=== PATIENT | male | born 1965 | race Caucasian/White ===

== ENCOUNTER 2025-05-05 08:04 | Emergency (ER) | payer BC ==
[~2025-05-05] VITALS: Ht 190.5 cm; Wt 131.8 kg
--- NOTE | 2025-05-05 08:12 | ELECTROCARDIOGRAPH REPORT ---
[facility] Test Date: 2025-05-05 Test Time: 08:09:33 Pat Name: MELISSA KIMBALL Department: EMERGENCY ROOM Room: Gender: M Director Toxicology: VIN : 1965 Requested By: SRINATH BISWAS Order Number: [id number] Reading MD: Dr. Toro Reyes Measurements Intervals [place] Rate: 85 P: 62 WA: 145 QRS: 52 QRSD: 88 T: 60 QT: 341 QTc: 406 Interpretive Statements Sinus rhythm Electronically Signed On 05-05-2025 18:47:[address] Toro Reyes Please click the below link to view image of tracing.
--- NOTE | 2025-05-05 08:51 | RADIOLOGY REPORT ---
CHEST RADIOGRAPH Indication: CP Technique: Single frontal view of the chest was obtained COMPARISON: None FINDINGS: Lines and Tubes: None Lungs: Clear Pleura: No effusion. No pneumothorax. Cardiomediastinal contours: Unremarkable Bones: Unremarkable IMPRESSION: 1. No acute disease.
[2025-05-05 10:09] LABS: BASOPHILS # (AUTO) 0.1 X10'3 (0-0.2); BASOPHILS % (AUTO) 0.7 % (0-1); EOSINOPHILS # (AUTO) 0.1 X10'3 (0-0.9); EOSINOPHILS % (AUTO) 1.4 % (0-6); HEMATOCRIT 47.7 % (42.0-52.0); HEMOGLOBIN 16.2 g/dl (14.0-17.9); LYMPHOCYTES # (AUTO) 1.1 X10'3 (1.1-4.8); LYMPHOCYTES % (AUTO) 13.9 % (21-51); MEAN CORPUSCULAR HEMOGLOBIN 29.1 PG (27.0-31.0); MEAN CORPUSCULAR VOLUME 85.5 FL (78-98); MEAN PLATELET VOLUME 7.5 FL (7.4-10.4); MONOCYTES # (AUTO) 0.5 X10'3 (0-0.9); NEUTROPHILS # (AUTO) 6.2 X10'3 (1.8-7.7); PLATELET COUNT 230 X10'3 (140-440); RED BLOOD COUNT 5.58 X10'6 (4.70-6.10); RED CELL DISTRIBUTION WIDTH 13.4 % (11.5-14.5)
[2025-05-05 10:34] LABS: ANION GAP 9 (8-16); BLOOD UREA NITROGEN 14 MG/DL (7-18); BUN/CREATININE RATIO 16.5 (10.0-20.0); CALCIUM 9.5 MG/DL (8.5-10.1); CHLORIDE 102 MMOL/L (99-107); CREATININE 0.85 MG/DL (0.60-1.10); GLUCOSE 112 MG/DL (70-104); POTASSIUM 4.2 MMOL/L (3.5-5.1); PRO BRAIN NATRIURETIC PEPTIDE 95 PG/ML (0-125); SODIUM 138 MMOL/L (135-145); TOTAL CARBON DIOXIDE 27.5 MMOL/L (24-32); eCRCL 109 ML/MIN; eGFR > 90 ML/MIN
--- NOTE | 2025-05-05 10:44 | Physician Documentation ---
History of Present Illness ~ Chief Complaint: Chest Pain Stated Complaint: CP/SOB/BLURRY VISION Time Seen by MD: 09:00 Mode of Arrival: Ambulatory, Dropped Off HPI Patient reports he had a colonoscopy 3 months ago and was sent to Dr. kaiser because of irregularities in his ekg. Dr. kaiser saw him and did a work up which was negative but put him on a small dose of metoprolol. Pt takes that regularly but this morning states he woke up with chest pain and felt somewhat dizzy and weak. Currently he is asymptomatic and denies fever, N/V/D, cough, chest pain, abdominal pain, urinary symptoms. He also recently started ozempic injections. Medication Reconciliation Allergies: Coded Allergies: No Known Allergies (Unverified , 05/05/25) Review of Systems All Other Systems at this time: Reviewed and Negative Physical Exam Vital Signs: RN Vital Signs have been reviewed: Yes, Temperature: 96.6, Source: Temporal, Heart Rate: 77, Respiratory Rate: 12, BP: 147/63, Pulse Oximetry: 96, Weight: 131.820 Oxygen Flow Rate: 0 Physical Exam HEENT: PERRL, moist oral mucosa, EOMI Pulmonary: No respiratory distress Cardiac: RRR, no murmur, rub or gallop GI: nondistended, soft, nontender, no guarding, no rebound MSK: no deformity Skin: w/d/i, no rash Neuro: alert, nonfocal Psych: normal affect Progress Results/Orders Results/Orders Orders - SRINATH BISWAS MD Chest,Single View (05/05/25 08:11) Monitor (05/05/25 08:11) Saline Lock (05/05/25 08:11) Oxygen (05/05/25 08:11) Hs Troponin I W Calculations (05/05/25 10:11) Hs Troponin I W Calculations (05/05/25 11:11) Completed Orders - SRINATH BISWAS MD Chest,Single View (05/05/25 08:11) Cbc/Diff (05/05/25 08:11) BMP (05/05/25 08:11) PBNP (05/05/25 08:11) Electrocardiogram (05/05/25 08:11) Hs Troponin I W Calculations (05/05/25 08:11) Vital Signs 6/05/05/25 05/05/25 08:20 10:07 10:13 Temp 96.6 Pulse 80 77 Resp 16 12 B/P (MAP) 135/85 147/63 (91) Pulse Ox 98 96 O2 Flow Rate 0 0 Laboratory Tests Test 05/05/25 09:31 05/05/25 10:25 White Blood Count 8.0 Red Blood Count 5.58 Hemoglobin 16.2 Hematocrit 47.7 Mean Corpuscular Volume 85.5 Mean Corpuscular Hemoglobin 29.1 Mean Corpuscular Hemoglobin Concent 34.0 Red Cell Distribution Width 13.4 Platelet Count 230 Mean Platelet Volume 7.5 Neutrophils (%) (Auto) 78.0 H Lymphocytes (%) (Auto) 13.9 L Monocytes (%) (Auto) 6.0 Eosinophils (%) (Auto) 1.4 Basophils (%) (Auto) 0.7 Neutrophils # (Auto) 6.2 Lymphocytes # (Auto) 1.1 Monocytes # (Auto) 0.5 Eosinophils # (Auto) 0.1 Basophils # (Auto) 0.1 CBC Comment Sodium Level 138 Potassium Level 4.2 Chloride Level 102 Carbon Dioxide Level 27.5 Anion Gap 9 Blood Urea Nitrogen 14 Creatinine 0.85 Estimated GFR/1.73 m2 > 90 BUN/Creatinine Ratio 16.5 Glucose Level 112 H Calcium Level 9.5 Troponin I High Sensitivity 6 Pro-B-Type Natriuretic Peptide 95 Albumin 4.0 Chemistry Comments Medical Decision Making Findings 60 year old male with chest pain and weakness, recently started several medications including metoprolol and ozempic. Exam and vitals were benign. CXR by my interpretation demonstrates normal contours, no cardiomegaly, no infiltrate, no acute findings. EKG by my interpretation demonstrates NSR at rate of 85/minute, no STEMI criteria, no dysrhythmia. Observed, workup including troponin, electrolytes, hemoglobin unremarkable. 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 I feel that this patient's symptoms are likely secondary to his new medications. Return precautions were discussed. Differential Dx:Considerations: Include: gastritis, myocardial infarction, pericarditis, pancreatitis, pneumonia, pneumothorax Additional Information ddx includes anemia, dysrhythmia, UTI Departure Disposition: HOME / SELF CARE / HOMELESS Impression: Primary Impression: Chest pain Discharge Instructions: Nonspecific Chest Pain, Adult Referrals: NO PRIMARY CARE PROVIDER (PCP) Education Educated: Patient, Family Educated regarding: diagnosis, treatment, prognosis, need for follow up Signature Scribe Signature: . Attestation: . SRINATH BISWAS MD May 05, 2025 10:44
[2025-05-05 10:51] VITALS: BP 138/58; PULSE 80; RESP 16; TEMP 98; O2SAT 95
== END 2025-05-05 10:53 | disposition home or self-care (01) ==
LOC: ER 08:05
DX: R07.9 Chest pain, unspecified (principal); R42 Dizziness and giddiness; R53.1 Weakness; R06.02 Shortness of breath
CPT/HCPCS: 36415; 71045; 80048; 83880; 84484; 85025; 93005; 99285